=== PATIENT | female | born 1980 | race Caucasian/White ===

== ENCOUNTER 2018-10-26 14:10 | Emergency (ER) | payer BC ==
[~2018-10-26] VITALS: Ht 167.6 cm; Wt 63.6 kg
[2018-10-26] MEDS ORDERED: diphenhydrAMINE 50 mg/ml inj IM ONE (14:15)
[2018-10-26] MEDS ORDERED: famotidine/PF 10 mg/ml inj IV ONE (14:15)
[2018-10-26] MEDS ORDERED: LORazepam 2 mg/ml vial IM ONE (14:15)
[2018-10-26] MEDS ORDERED: normal saline 1000ML IV soln IVB ONE (14:15)
[2018-10-26] MEDS ORDERED: ondansetron/PF 4mg/2ml inj IV ONE (14:15)
[2018-10-26 15:45] VITALS: BP 111/74
== END 2018-10-26 16:10 | disposition home or self-care (01) ==
LOC: ER 14:11
DX: F41.0 Panic disorder [episodic paroxysmal anxiety] (principal); R06.00 Dyspnea, unspecified; R20.0 Anesthesia of skin; R20.2 Paresthesia of skin
CPT/HCPCS: 96374; 96375; 99283; J1200; J2060; J2405; J3490; J7030; 96372